=== PATIENT | female | born 1990 | race Native Hawaiian/Other Pacific Islander ===

== ENCOUNTER 2020-09-20 18:25 | Outpatient (CLI) | payer SELFPAY ==
[2020-09-20 19:14] VITALS: BP 99/55
[2020-09-20] MEDS ORDERED: LACTATED RINGERS 500 ML IV ONE (20:35)
[2020-09-20] MEDS ORDERED: TERBUTALINE 1 MG/1 ML INJ SUB-Q PRN (20:43)
[2020-09-20 20:46] LABS: Bacteria,Urine 1+ /HPF (Negative); Bilirubin,Urine NEG (Negative); Blood,Urine NEG (Negative); Color,Urine Yellow (Yellow); Protein,Urine <15 mg/dL mg/dL (Negative); Urobilinogen,Urine < 2.0 mg/dL (<2.0)
[2020-09-20] MEDS ORDERED: LACTATED RINGERS 1,000 ML IV ONE (22:00)
== END 2020-09-20 21:41 | disposition home or self-care (01) ==
LOC: TRG 18:25 → APU 18:26 → TRG 21:41
PROVIDERS: ATTEND Obstetrics & Gynecology
DX: O42.913 Preterm premature rupture of membranes, unspecified as to length of time between rupture and onset of labor, third trimester (principal); Z3A.33 33 weeks gestation of pregnancy
CPT/HCPCS: 59025; 81001; 96360; 96372; J3105; J7120; 96361

== ENCOUNTER 2021-03-26 11:59 | Inpatient (IN) | payer OTHER ==
--- NOTE | 2021-03-26 12:24 | Event Note ---
ED Screening Note Date of service: 03/26/21 Time: 12:23 ED Screening Note: Patient presents with complaints of right lower quadrant pain radiating to her lower back with associated nausea and vomiting which started last night. This initial assessment/diagnostic orders/clinical plan/treatment(s) is/are subject to change based on patients health status, clinical progression and re- assessment by fellow clinical providers in the ED. Further treatment and workup at subsequent clinical providers discretion. Patient/guardian urged not to elope from the ED as their condition may be serious if not clinically assessed and managed. Initial orders include: Abdominal pain order set
[2021-03-26 12:56] LABS: Basophils % (Auto) 0.3 % (0.0-1.8); Eosinophils % (Auto) 0.4 % (0.0-4.3); Hematocrit 36.3 % (30.3-42.9); Hemoglobin 12.2 gm/dl (10.1-14.3); Lymphocytes # (Auto) 0.5 K/mm3 (1.2-5.4); Lymphocytes % (Auto) 4.4 % (13.4-35.0); Mean Corpuscular HGB Conc 34 % (30-34); Mean Corpuscular Volume 82 fl (79-97); Monocytes # (Auto) 0.9 K/mm3 (0.0-0.8); Monocytes % (Auto) 7.3 % (0.0-7.3); Platelet Count 255 K/mm3 (140-440); Red Blood Count 4.42 M/mm3 (3.65-5.03); Red Cell Distribution Width 16.1 % (13.2-15.2)
[2021-03-26 13:21] LABS: Alanine Aminotransferase 12 units/L (7-56); Albumin 4.3 g/dL (3.9-5)
[2021-03-26 13:22] LABS: Bilirubin,Direct < 0.2 mg/dL (0-0.2)
[2021-03-26] MEDS ORDERED: SODIUM CHLORIDE 0.9% 1000 ML 1,000 ML IV ONE ×3 (14:38→20:02)
[2021-03-26] MEDS ORDERED: ONDANSETRON 4 MG/2 ML INJ IV ONE (14:38)
[2021-03-26] MEDS ORDERED: MORPHINE 2 MG/1 ML INJ IV ONE (14:39)
[2021-03-26 15:03] LABS: Blood Urea Nitrogen 9 mg/dL (7-17); Calcium 9.2 mg/dL (8.4-10.2); Hemolysis Index 2
[2021-03-26 15:19] LABS: BUN/Creatinine Ratio 18
[2021-03-26] MEDS ORDERED: MORPHINE 4 MG/1 ML INJ IV ONE ×2 (16:25→18:01)
[2021-03-26] MEDS ORDERED: ONDANSETRON 4 MG/2 ML INJ IM ONE (16:25)
--- NOTE | 2021-03-26 16:27 | Emergency Department Report ---
ED General Adult HPI - General Chief complaint: Abdominal Pain Stated complaint: ABD PAINS/GEN WEAKNESS Time Seen by Provider: 03/26/21 14:47 Source: patient Mode of arrival: Wheelchair Limitations: No Limitations - History of Present Illness Initial comments: The patient presents to the emergency department with a chief complaint of lower abdominal pain and vomiting that started last night. Patient complains that she has burning with urination as well. Patient complains also of nausea, vomiting, diarrhea. The patient states that pain is located in the right lower quadrant of abdomen. At times we use a ditcher operator to obtain history. -: Sudden Location: abdomen Severity scale (0 -10): 3 Quality: stabbing Consistency: constant Improves with: none Worsens with: none Associated Symptoms: denies other symptoms Treatments Prior to Arrival: none - Related Data Allergies Allergy/AdvReac Type Severity Reaction Status Date / Time No Known Allergies Allergy Unverified 09/20/20 19:35 ED Review of Systems ROS: Stated complaint: ABD PAINS/GEN WEAKNESS Other details as noted in HPI Comment: All other systems reviewed and negative Constitutional: denies: chills, fever Eyes: denies: eye pain, eye discharge, vision change ENT: denies: ear pain, throat pain Respiratory: denies: cough, shortness of breath, wheezing Cardiovascular: denies: chest pain, palpitations Endocrine: no symptoms reported Gastrointestinal: abdominal pain. denies: nausea, diarrhea Genitourinary: denies: urgency, dysuria, discharge Musculoskeletal: denies: back pain, joint swelling, arthralgia Skin: denies: rash, lesions Neurological: denies: headache, weakness, paresthesias Psychiatric: denies: anxiety, depression Hematological/Lymphatic: denies: easy bleeding, easy bruising ED Past Medical Hx - Past Medical History Previous Medical History?: No Hx Hypertension: No Hx Diabetes: No Hx Deep Vein Thrombosis: No Hx Renal Disease: No Hx Sickle Cell Disease: No Hx Seizures: No Hx Asthma: No - Social History Smoking Status: Never Smoker Substance Use Type: None ED Physical Exam - General Limitations: No Limitations General appearance: alert, in no apparent distress - Head Head exam: Present: atraumatic, normocephalic - Eye Eye exam: Present: normal appearance, PERRL, EOMI - ENT ENT exam: Present: mucous membranes moist - Neck Neck exam: Present: normal inspection - Respiratory Respiratory exam: Present: normal lung sounds bilaterally. Absent: respiratory distress - Cardiovascular Cardiovascular Exam: Present: normal rhythm, tachycardia. Absent: systolic murmur, diastolic murmur, rubs, gallop - GI/Abdominal GI/Abdominal exam: Present: soft, tenderness (Tenderness to palpation right lower quadrant), normal bowel sounds. Absent: distended - External exam: Present: normal external exam, other (Exam chaperoned by nurse Katherine ODONNELL at 6 PM) Speculum exam: Present: vaginal discharge Bi-manual exam: Present: adnexal tenderness (right ) - Extremities Exam Extremities exam: Present: normal inspection - Back Exam Back exam: Present: normal inspection - Neurological Exam Neurological exam: Present: alert, oriented X3, CN II-XII intact. Absent: motor sensory deficit - Psychiatric Psychiatric exam: Present: normal affect, normal mood - Skin Skin exam: Present: warm, dry, intact, normal color. Absent: rash ED Course Vital Signs 03/26/21 12:16 Temperature 98.6 F Pulse Rate 109 H Respiratory 20 Rate Blood Pressure 91/46 O2 Sat by Pulse 100 Oximetry ED Medical Decision Making - Lab Data Result diagrams: 03/26/21 12:29 03/26/21 12:29 Lab Results 03/26/21 03/26/21 03/26/21 Range/Units 12:29 12:29 12:29 WBC 12.5 H (4.5-11.0) K/mm3 RBC 4.42 (3.65-5.03) M/mm3 Hgb 12.2 (10.1-14.3) gm/dl Hct 36.3 (30.3-42.9) % MCV 82 (79-97) fl MCH 28 (28-32) pg MCHC 34 (30-34) % RDW 16.1 H (13.2-15.2) % Plt Count 255 (140-440) K/mm3 Lymph % (Auto) 4.4 L (13.4-35.0) % [place] % (Auto) 7.3 (0.0-7.3) % Eos % (Auto) 0.4 (0.0-4.3) % Baso % (Auto) 0.3 (0.0-1.8) % Lymph # (Auto) 0.5 L (1.2-5.4) K/mm3 [place] # (Auto) 0.9 H (0.0-0.8) K/mm3 Eos # (Auto) 0.0 (0.0-0.4) K/mm3 Baso # (Auto) 0.0 (0.0-0.1) K/mm3 Seg Neutrophils % 87.6 H (40.0-70.0) % Seg Neutrophils # 11.0 H (1.8-7.7) K/mm3 Sodium (137-145) mmol/L Potassium (3.6-5.0) mmol/L Chloride (98-107) mmol/L Carbon Dioxide (22-30) mmol/L Anion Gap mmol/L BUN (7-17) mg/dL Creatinine (0.6-1.2) mg/dL Estimated GFR ml/min BUN/Creatinine Ratio % Glucose (65-100) mg/dL Lactic Acid (0.7-2.0) mmol/L Calcium (8.4-10.2) mg/dL Total Bilirubin 0.30 (0.1-1.2) mg/dL Direct Bilirubin < 0.2 (0-0.2) mg/dL Indirect Bilirubin 0.1 mg/dL AST 11 (5-40) units/L ALT 12 (7-56) units/L Alkaline Phosphatase 86 (35-129) units/L Total Protein 8.0 (6.3-8.2) g/dL Albumin 4.3 (3.9-5) g/dL Albumin/Globulin Ratio 1.2 % Lipase 25 (13-60) units/L HCG, Qual Negative (Negative) 03/26/21 03/26/21 Range/Units 12:29 12:29 WBC (4.5-11.0) K/mm3 RBC (3.65-5.03) M/mm3 Hgb (10.1-14.3) gm/dl Hct (30.3-42.9) % MCV (79-97) fl MCH (28-32) pg MCHC (30-34) % RDW (13.2-15.2) % Plt Count (140-440) K/mm3 Lymph % (Auto) (13.4-35.0) % [place] % (Auto) (0.0-7.3) % Eos % (Auto) (0.0-4.3) % Baso % (Auto) (0.0-1.8) % Lymph # (Auto) (1.2-5.4) K/mm3 [place] # (Auto) (0.0-0.8) K/mm3 Eos # (Auto) (0.0-0.4) K/mm3 Baso # (Auto) (0.0-0.1) K/mm3 Seg Neutrophils % (40.0-70.0) % Seg Neutrophils # (1.8-7.7) K/mm3 Sodium 137 (137-145) mmol/L Potassium 3.6 (3.6-5.0) mmol/L Chloride 102.1 (98-107) mmol/L Carbon Dioxide 23 (22-30) mmol/L Anion Gap 16 mmol/L BUN 9 (7-17) mg/dL Creatinine 0.5 L (0.6-1.2) mg/dL Estimated GFR > 60 ml/min BUN/Creatinine Ratio 18 % Glucose 135 H (65-100) mg/dL Lactic Acid 1.30 (0.7-2.0) mmol/L Calcium 9.2 (8.4-10.2) mg/dL Total Bilirubin (0.1-1.2) mg/dL Direct Bilirubin (0-0.2) mg/dL Indirect Bilirubin mg/dL AST (5-40) units/L ALT (7-56) units/L Alkaline Phosphatase (35-129) units/L Total Protein (6.3-8.2) g/dL Albumin (3.9-5) g/dL Albumin/Globulin Ratio % Lipase (13-60) units/L HCG, Qual (Negative) - Radiology Data Radiology results: report reviewed - Medical Decision Making Discussed the patient with the on-call check airman Dr. Swan suggested that we get general surgery involved Spoke with Dr. Ordoñez and was asked to start the patient on IV antibiotics and will see the patient in consultation Awaiting results of the GC and wet prep studies IV antibiotics and IV fluids given Critical Care Time: Yes Critical care time in (mins) excluding proc time.: 35 Critical care attestation.: If time is entered above; I have spent that time in minutes in the direct care of this critically ill patient, excluding procedure time. ED Disposition Clinical Impression: Colitis, Sepsis Disposition: OP ADMIT IP TO THIS HOSP Is pt being admited?: Yes Does the pt Need Aspirin: No Condition: Fair Instructions: Abdominal Pain (ED) Referrals: PRIMARY CARE, [Primary Care Provider] - 3-5 Days
--- NOTE | 2021-03-26 16:28 | Cat Scan Report ---
CT abdomen pelvis w con INDICATION: MAIN. TECHNIQUE: All CT scans at this location are performed using CT dose reduction for ALARA by means of automated e xposure control. COMPARISON: None available. FINDINGS: Lung bases are clear. Liver, gallbladder, spleen, pancreas, kidneys and adrenals are negative. Abdomi nal aorta is normal in size. No adenopathy. Pelvis There is fairly diffuse inflammatory change in the right lower abdomen and right pelvis, involving th e right adnexa, right colon, including the hepatic flexure, appendix, sigmoid colon located to the ri ght of midline, and distal small bowel. There is only trace free fluid in the pelvis. Urinary bladde r is moderately distended but otherwise negative. No free air. No acute skeletal lesions. IMPRESSION: 1. Diffuse inflammatory change in the right pelvis and right lower abdomen, as described above. The e xact etiology of this inflammatory change is difficult to determine. Pelvic inflammatory disease, brad endicitis and enteritis/colitis are all diagnostic possibilities. Signer Name: Taras Jim MD Signed: 03/26/2021 4:24 PM Workstation Name: [id number]
[2021-03-26] MEDS ORDERED: PIPERACIL/TAZOBACTA 4.5/NS 100 4.5 GM/100 ML VIAL IV ONE ×2 (18:03→18:14)
[2021-03-26] MEDS ORDERED: ONDANSETRON 4 MG/2 ML INJ ONE (19:49)
--- NOTE | 2021-03-27 00:27 | History and Physical Report ---
History of Present Illness Date of examination: 03/26/21 Date of admission: 03/26/21 18:30 Chief complaint: Right lower quadrant pain for 2 days History of present illness: 30-year-old Iranian-speaking female with no significant past medical history presents with right lower quadrant pain since yesterday. Patient also has dysuria. No nausea vomiting or diarrhea. Pain is about 8 on a scale of 1-10. No exacerbating or relieving factors. No fever or chills. No exposure to coronavirus. - Past Medical History Previous Medical History?: No Past surgical history No - Social History Smoking Status: Never Smoker Substance Use Type: None Review of Systems ROS: Stated complaint: ABD PAINS/GEN WEAKNESS Other details as noted in HPI Comment: All other systems reviewed and negative Constitutional: denies: chills, fever Eyes: denies: eye pain, eye discharge, vision change ENT: denies: ear pain, throat pain Respiratory: denies: cough, shortness of breath, wheezing Cardiovascular: denies: chest pain, palpitations Endocrine: no symptoms reported Gastrointestinal: abdominal pain. denies: nausea, diarrhea Genitourinary: denies: urgency, dysuria, discharge Musculoskeletal: denies: back pain, joint swelling, arthralgia Skin: denies: rash, lesions Neurological: denies: headache, weakness, paresthesias Psychiatric: denies: anxiety, depression Hematological/Lymphatic: denies: easy bleeding, easy bruising \ Medications and Allergies Allergies Allergy/AdvReac Type Severity Reaction Status Date / Time No Known Allergies Allergy Unverified 09/20/20 19:35 Exam - Constitutional Vitals: Temp Pulse Resp BP Pulse Ox 99.3 F 101 H 18 96/61 100 03/26/21 22:01 03/26/21 22:01 03/26/21 22:01 03/26/21 22:01 03/26/21 22:01 General appearance: Present: mild distress, well-nourished - EENT Eyes: Present: PERRL ENT: hearing intact, clear oral mucosa - Neck Neck: Present: supple, normal ROM - Respiratory Respiratory effort: normal Respiratory: bilateral: CTA - Cardiovascular Heart rate: 78 Rhythm: regular Heart Sounds: Present: S1 & S2. Absent: rub, click - Extremities Extremities: no ischemia, pulses intact, pulses symmetrical, No edema Peripheral Pulses: within normal limits - Abdominal General gastrointestinal: Present: soft, non-tender, non-distended, normal bowel sounds Localized gastrointestinal: tender: RLQ, guarding: RLQ Female genitourinary: Present: normal - Rectal Rectal Exam: deferred - Integumentary Integumentary: Present: clear, warm, dry - Musculoskeletal Musculoskeletal: gait normal, strength equal bilaterally - Psychiatric Psychiatric: appropriate mood/affect, intact judgment & insight - Neurologic Neurologic: CNII-XII intact, moves all extremities - Allied Health Allied health notes reviewed: nursing, case management Results - Labs CBC & Chem 7: 03/26/21 12:29 03/26/21 12:29 Labs: Laboratory Last Values WBC 12.5 K/mm3 (4.5-11.0) H 03/26/21 12: RBC 4.42 M/mm3 (3.65-5.03) 03/26/21 12: Hgb 12.2 gm/dl (10.1-14.3) 03/26/21 12: Hct 36.3 % (30.3-42.9) 03/26/21 12: MCV 82 fl (79-97) 03/26/21 12: MCH 28 pg (28-32) 03/26/21 12: MCHC 34 % (30-34) 03/26/21 12: RDW 16.1 % (13.2-15.2) H 03/26/21 12:29 Plt Count 255 K/mm3 (140-440) 03/26/21 12: Lymph % (Auto) 4.4 % (13.4-35.0) L 03/26/21 12: [place] % (Auto) 7.3 % (0.0-7.3) 03/26/21 12: Eos % (Auto) 0.4 % (0.0-4.3) 03/26/21 12: Baso % (Auto) 0.3 % (0.0-1.8) 03/26/21 12: Lymph # (Auto) 0.5 K/mm3 (1.2-5.4) L 03/26/21 12: [place] # (Auto) 0.9 K/mm3 (0.0-0.8) H 03/26/21 12: Eos # (Auto) 0.0 K/mm3 (0.0-0.4) 03/26/21 12:29 Baso # (Auto) 0.0 K/mm3 (0.0-0.1) 03/26/21 12:29 Seg Neutrophils % 87.6 % (40.0-70.0) H 03/26/21 12: Seg Neutrophils # 11.0 K/mm3 (1.8-7.7) H 03/26/21 12:29 Sodium 137 mmol/L (137-145) 03/26/21 12:29 Potassium 3.6 mmol/L (3.6-5.0) 03/26/21 12:29 Chloride 102.1 mmol/L (98-107) 03/26/21 12: Carbon Dioxide 23 mmol/L (22-30) 03/26/21 12:29 Anion Gap 16 mmol/L 03/26/21 12:29 BUN 9 mg/dL (7-17) 03/26/21 12:29 Creatinine 0.5 mg/dL (0.6-1.2) L 03/26/21 12:29 Estimated GFR > 60 ml/min 03/26/21 12:29 BUN/Creatinine Ratio 18 % 03/26/21 12:29 Glucose 135 mg/dL (65-100) H 03/26/21 12:29 Lactic Acid 1.40 mmol/L (0.7-2.0) 03/26/21 18:11 Calcium 9.2 mg/dL (8.4-10.2) 03/26/21 12: Total Bilirubin 0.30 mg/dL (0.1-1.2) 03/26/21 12:29 Direct Bilirubin < 0.2 mg/dL (0-0.2) 03/26/21 12: Indirect Bilirubin 0.1 mg/dL 03/26/21 12:29 AST 11 units/L (5-40) 03/26/21 12: ALT 12 units/L (7-56) 03/26/21 12: Alkaline Phosphatase 86 units/L (35-129) 03/26/21 12:29 Total Protein 8.0 g/dL (6.3-8.2) 03/26/21 12:29 Albumin 4.3 g/dL (3.9-5) 03/26/21 12:29 Albumin/Globulin Ratio 1.2 % 03/26/21 12:29 Lipase 25 units/L (13-60) 03/26/21 12:29 HCG, Qual Negative (Negative) 03/26/21 12:29 Microbiology: Microbiology 03/26/21 18:11 Peripheral/Venous Blood Culture - Preliminary Culture in Progress 03/26/21 18:17 Peripheral/Venous Blood Culture - Preliminary Culture in Progress 03/26/21 Unknown Cervix Wet Prep - Final 03/26/21 12:29 Peripheral/Venous Blood Culture - Preliminary Culture in Progress 03/26/21 12:29 Peripheral/Venous Blood Culture - Preliminary Culture in Progress - Imaging and Cardiology CT scan - abdomen: report reviewed Imaging and Cardiology: CT abdomen and pelvis IMPRESSION: 1. Diffuse inflammatory change in the right pelvis and right lower abdomen, as described above. The exact etiology of this inflammatory change is difficult to determine. Pelvic inflammatory disease, appendicitis and en teritis/colitis are all diagnostic possibilities. Signer Name: Taras Jim MD Signed: 03/26/2021 4:24 PM Workstation Name: [id number] [place]/IV: Voiding Method Bedside Commode Assessment and Plan Advance Directives: Yes (Full code) VTE prophylaxis?: Chemical Plan of care discussed with patient/family: Yes - Patient Problems (1) SIRS (systemic inflammatory response syndrome) Current Visit: Yes Status: Acute Plan to address problem: Patient has high white count and hypotension and low-grade fever of 100.3 Clinical picture fits with Sirs (2) Pelvic inflammatory disease Current Visit: Yes Status: Acute Plan to address problem: Confined only to the right lower quadrant pelvis Differential diagnosis of appendicitis versus PID PA patient initiated on IV Zosyn Surgery and TOLL TEST WORKER consult requested Will defer surgery to Dr. Swan and Dr. Tiago Parker IV antibiotics for now IV fluids for now (3) Hypotension Current Visit: Yes Status: Acute Qualifiers: Hypotension type: unspecified hypotension type Qualified Code(s): I95.9 - Hypotension, unspecified Plan to address problem: Possible sepsis IV normal saline bolus (4) DVT prophylaxis Current Visit: Yes Status: Acute Plan to address problem: On heparin and GI prophylaxis
[2021-03-27] MEDS ORDERED: ACETAMINOPHEN 325 MG TAB PO PRN (00:31)
[2021-03-27] MEDS ORDERED: ONDANSETRON 4 MG/2 ML INJ IV PRN (00:31)
[2021-03-27] MEDS ORDERED: PIPERACILLIN/TAZOBACTAM 3.375 3.375 GM/50 ML BAG IV SCH (01:00)
[2021-03-27] MEDS: MORPHINE 2 MG/1 ML INJ IV PRN ×4 (02:30→21:16)
[2021-03-27] MEDS: SODIUM CHLORIDE 0.9% 1000 ML 1,000 ML IV SCH (02:30)
[2021-03-27] MEDS: PIPERACIL/TAZOBACTA 4.5/NS 100 4.5 GM/100 ML VIAL IV SCH ×3 (04:05→21:16)
[2021-03-27 06:23] LABS: Bilirubin,Urine NEG (Negative); Blood,Urine NEG (Negative); Color,Urine Yellow (Yellow); Protein,Urine <15 mg/dL mg/dL (Negative); Urobilinogen,Urine < 2.0 mg/dL (<2.0)
[2021-03-27 08:51] LABS: Basophils % (Auto) 0.3 % (0.0-1.8); Eosinophils % (Auto) 0.1 % (0.0-4.3); Hematocrit 29.6 % (30.3-42.9); Hemoglobin 10.1 gm/dl (10.1-14.3); Lymphocytes # (Auto) 0.9 K/mm3 (1.2-5.4); Lymphocytes % (Auto) 10.6 % (13.4-35.0); Mean Corpuscular HGB Conc 34 % (30-34); Mean Corpuscular Volume 83 fl (79-97); Monocytes # (Auto) 0.7 K/mm3 (0.0-0.8); Platelet Count 195 K/mm3 (140-440); Red Blood Count 3.57 M/mm3 (3.65-5.03); Red Cell Distribution Width 16.7 % (13.2-15.2)
[2021-03-27] MEDS ORDERED: SODIUM CHLORIDE 0.9% 1000 ML 1,000 ML IV ONE (08:54)
[2021-03-27 09:08] LABS: Alanine Aminotransferase 12 units/L (7-56); Albumin 3.4 g/dL (3.9-5); Blood Urea Nitrogen 6 mg/dL (7-17); Calcium 7.9 mg/dL (8.4-10.2); Hemolysis Index 8
--- NOTE | 2021-03-27 09:08 | Progress Note ---
Assessment and Plan Assessment and plan: 30-year-old Belarusian-speaking female with no significant past medical history presents with right lower quadrant pain since yesterday. She has a 5-month-old in addition to 2 other children patient also has dysuria. No nausea vomiting or diarrhea. Pain is about 8 on a scale of 1-10. No exacerbating or relieving factors. No fever or chills. No exposure to coronavirus. Initial imaging CT scan showed concern for diffuse inflammatory change in the right pelvis and right lower abdomen with multiple differentials documented such as pelvic inflammatory disease, appendicitis, enteritis/colitis Diffuse right lower quadrant abdominal pain possible underlining appendicitis versus colitis versus PID Systemic inflammatory response syndrome without organ dysfunction. No evidence of sepsis Hypotension Leukocytosis now resolved Plan Continue supportive care bowel rest Surgery and NUTRITION THERAPIST consultation pending We will give a bolus of fluid and monitor blood pressure Pain control Continue empiric antibiotic at this time. Monitor electrolytes and LFTs DVT and GI prophylaxis Patient may benefit from a GI evaluation outpatient after inflammatory condition has resolved. Plan of care discussed with the patient in detail and nursing staff at bedside History Interval history: Patient seen and examined today resting comfortably although still with pain in the right lower quadrant. Rates it a 3/10 in intensity at this time. Nursing staff overnight reports that patient required multiple rounds of pain medication nevertheless has been able to ambulate. No further nausea vomiting noted. Hospitalist Physical - Physical exam Narrative exam: VITAL SIGNS: Reviewed. GENERAL: The patient appears normally developed, cachectic, mild discomfort no respiratory distress vital signs as documented. HEAD: No signs of head trauma. EYES: Pupils are equal. Extraocular motions intact. EARS: Hearing grossly intact. MOUTH: Oropharynx is normal. NECK: No adenopathy, no JVD. CHEST: Chest with clear breath sounds bilaterally. No wheezes, rales, or rhonchi. CARDIAC: Regular rate and rhythm. S1 and S2, without murmurs, gallops, or rubs. VASCULAR: No Edema. Peripheral pulses normal and equal in all extremities. ABDOMEN: Soft, right lower quadrant tenderness and non distended. No rebound or guarding, and no masses palpated. Bowel Sounds normal. MUSCULOSKELETAL: Good range of motion of all major joints. Extremities without clubbing, cyanosis or edema. NEUROLOGIC EXAM: Alert and oriented x 3 No focal sensory or strength deficits. Speech normal. Follows commands. PSYCHIATRIC: Mood normal. SKIN: detail exam as documented in skin assessment - Constitutional Vitals: Temp Pulse Resp BP Pulse Ox 99.3 F 101 H 18 86/48 95 03/27/21 07:37 03/27/21 07:37 03/27/21 07:37 03/27/21 07:37 03/27/21 07:37 General appearance: Present: mild distress, well-nourished Results - Labs CBC & Chem 7: 03/27/21 08:00 03/26/21 12:29 Labs: Laboratory Last Values WBC 8.4 K/mm3 (4.5-11.0) 03/27/21 08:00 RBC 3.57 M/mm3 (3.65-5.03) L 03/27/21 08:00 Hgb 10.1 gm/dl (10.1-14.3) 03/27/21 08:00 Hct 29.6 % (30.3-42.9) L D 03/27/21 08:00 MCV 83 fl (79-97) 03/27/21 08:00 MCH 28 pg (28-32) 03/27/21 08:00 MCHC 34 % (30-34) 03/27/21 08:00 RDW 16.7 % (13.2-15.2) H 03/27/21 08:00 Plt Count 195 K/mm3 (140-440) 03/27/21 08:00 Lymph % (Auto) 10.6 % (13.4-35.0) L 03/27/21 08:00 [place] % (Auto) 8.0 % (0.0-7.3) H 03/27/21 08:00 Eos % (Auto) 0.1 % (0.0-4.3) 03/27/21 08:00 Baso % (Auto) 0.3 % (0.0-1.8) 03/27/21 08:00 Lymph # (Auto) 0.9 K/mm3 (1.2-5.4) L 03/27/21 08:00 [place] # (Auto) 0.7 K/mm3 (0.0-0.8) 03/27/21 08:00 Eos # (Auto) 0.0 K/mm3 (0.0-0.4) 03/27/21 08:00 Baso # (Auto) 0.0 K/mm3 (0.0-0.1) 03/27/21 08:00 Seg Neutrophils % 81.0 % (40.0-70.0) H 03/27/21 08:00 Seg Neutrophils # 6.8 K/mm3 (1.8-7.7) 03/27/21 08:00 Sodium 137 mmol/L (137-145) 03/26/21 12:29 Potassium 3.6 mmol/L (3.6-5.0) 03/26/21 12:29 Chloride 102.1 mmol/L (98-107) 03/26/21 12:29 Carbon Dioxide 23 mmol/L (22-30) 03/26/21 12:29 Anion Gap 16 mmol/L 03/26/21 12:29 BUN 9 mg/dL (7-17) 03/26/21 12:29 Creatinine 0.5 mg/dL (0.6-1.2) L 03/26/21 12:29 Estimated GFR > 60 ml/min 03/26/21 12:29 BUN/Creatinine Ratio 18 % 03/26/21 12:29 Glucose 135 mg/dL (65-100) H 03/26/21 12:29 Hemoglobin A1c 5.0 % (4-6) 03/27/21 08:00 Lactic Acid 1.40 mmol/L (0.7-2.0) 03/26/21 18:11 Calcium 9.2 mg/dL (8.4-10.2) 03/26/21 12:29 Total Bilirubin 0.30 mg/dL (0.1-1.2) 03/26/21 12:29 Direct Bilirubin < 0.2 mg/dL (0-0.2) 03/26/21 12:29 Indirect Bilirubin 0.1 mg/dL 03/26/21 12:29 AST 11 units/L (5-40) 03/26/21 12:29 ALT 12 units/L (7-56) 03/26/21 12:29 Alkaline Phosphatase 86 units/L (35-129) 03/26/21 12:29 Total Protein 8.0 g/dL (6.3-8.2) 03/26/21 12:29 Albumin 4.3 g/dL (3.9-5) 03/26/21 12:29 Albumin/Globulin Ratio 1.2 % 03/26/21 12:29 Lipase 25 units/L (13-60) 03/26/21 12:29 HCG, Qual Negative (Negative) 03/26/21 12:29 Urine Color Yellow (Yellow) 03/27/21 06:00 Urine Turbidity Clear (Clear) 03/27/21 06:00 Urine pH 6.0 (5.0-7.0) 03/27/21 06:00 Ur Specific [place] 1.019 (1.003-1.030) 03/27/21 06:00 Urine Protein <15 mg/dl mg/dL (Negative) 03/27/21 06:00 Urine Glucose (UA) Neg mg/dL (Negative) 03/27/21 06:00 Urine Ketones Tr mg/dL (Negative) 03/27/21 06:00 Urine Blood Neg (Negative) 03/27/21 06:00 Urine Nitrite Neg (Negative) 03/27/21 06:00 Urine Bilirubin Neg (Negative) 03/27/21 06:00 Urine Urobilinogen < 2.0 mg/dL (<2.0) 03/27/21 06:00 Ur Leukocyte Esterase Neg (Negative) 03/27/21 06:00 Urine WBC (Auto) 1.0 /HPF (0.0-6.0) 03/27/21 06:00 Urine RBC (Auto) 1.0 /HPF (0.0-6.0) 03/27/21 06:00 U Epithel Cells (Auto) 1.0 /HPF (0-13.0) 03/27/21 06:00 Microbiology: Microbiology 03/26/21 18:11 Peripheral/Venous Blood Culture - Preliminary Culture in Progress 03/26/21 18:17 Peripheral/Venous Blood Culture - Preliminary Culture in Progress 03/26/21 Unknown Cervix Wet Prep - Final 03/26/21 12:29 Peripheral/Venous Blood Culture - Preliminary Culture in Progress 03/26/21 12:29 Peripheral/Venous Blood Culture - Preliminary Culture in Progress [place]/IV: Voiding Method Bedside Commode Active Medications - Current Medications Current Medications: Generic Name Dose Route Start Last Admin Trade Name Freq PRN Reason Stop Dose Admin Acetaminophen 650 mg 03/27/21 00:31 03/27/21 05:40 Acetaminophen 325 Mg Tab PO 650 mg Q4H PRN Administration Pain MILD(1-3)/Fever >100.5/NORIEGA Famotidine 20 mg 03/27/21 10:00 Famotidine 20 Mg/2 Ml Inj IV BID WGANER Sodium Chloride 1,000 mls @ 100 mls/hr 03/27/21 00:45 03/27/21 02:30 Nacl 0.9% 1000 Ml IV 100 mls/hr DIRECT WAGNER Administration Piperacillin Sod/Tazobactam Sod 4.5 gm in 100 mls @ 200 mls/hr 03/27/21 04:00 03/27/21 04:05 Zosyn/Ns 4.5gm/100ml IV 200 mls/hr Q8H WAGNER Administration Protocol Sodium Chloride 1,000 mls @ 999 mls/hr 03/27/21 08:54 Nacl 0.9% 1000 Ml IV 03/27/21 09:54 BOLUS ONE Morphine Sulfate 2 mg 03/27/21 00:31 03/27/21 07:22 Morphine 2 Mg/1 Ml Inj IV 2 mg Q4H PRN Administration Pain, Moderate (4-6) Ondansetron HCl 4 mg 03/27/21 00:31 Ondansetron 4 Mg/2 Ml Inj IV Q8H PRN Nausea And Vomiting Oxycodone/Acetaminophen 1 tab 03/27/21 00:31 Oxycodone /Acetaminophen 5-325mg Tab PO Q6H PRN Pain, Moderate (4-6) Sodium Chloride 10 ml 03/27/21 10:00 Sodium Chloride 0.9% 10 Ml Flush Syringe IV BID WAGNER Sodium Chloride 10 ml 03/27/21 00:31 Sodium Chloride 0.9% 10 Ml Flush Syringe IV PRN PRN LINE FLUSH
[2021-03-27 10:00] LABS: BUN/Creatinine Ratio 10
[2021-03-27] MEDS: FAMOTIDINE 20 MG/2 ML INJ IV SCH ×2 (10:34→21:16)
--- NOTE | 2021-03-27 16:18 | Consultation ---
History of Present Illness Consult date: 03/27/21 Reason for consult: abdominal pain (30 yo female admitted with RLQ pain. Her pain is improving since being admitted.) Medications and Allergies Allergies Allergy/AdvReac Type Severity Reaction Status Date / Time No Known Allergies Allergy Unverified 09/20/20 19:35 Active Meds: Active Medications Acetaminophen (Acetaminophen 325 Mg Tab) 650 mg PO Q4H PRN PRN Reason: Pain MILD(1-3)/Fever >100.5/NORIEGA Last Admin: 03/27/21 05:40 Dose: 650 mg Documented by: Famotidine (Famotidine 20 Mg/2 Ml Inj) 20 mg IV BID WAGNER Sodium Chloride (Nacl 0.9% 1000 Ml) 1,000 mls @ 100 mls/hr IV DIRECT WAGNER Last Admin: 03/27/21 02:30 Dose: 100 mls/hr Documented by: Piperacillin Sod/Tazobactam Sod (Zosyn/Ns 4.5gm/100ml) 4.5 gm in 100 mls @ 200 mls/hr IV Q8H WAGNER; Protocol Last Admin: 03/27/21 04:05 Dose: 200 mls/hr Documented by: Morphine Sulfate (Morphine 2 Mg/1 Ml Inj) 2 mg IV Q4H PRN PRN Reason: Pain, Moderate (4-6) Last Admin: 03/27/21 07:22 Dose: 2 mg Documented by: Ondansetron HCl (Ondansetron 4 Mg/2 Ml Inj) 4 mg IV Q8H PRN PRN Reason: Nausea And Vomiting Oxycodone/Acetaminophen (Oxycodone /Acetaminophen 5-325mg Tab) 1 tab PO Q6H PRN PRN Reason: Pain, Moderate (4-6) Sodium Chloride (Sodium Chloride 0.9% 10 Ml Flush Syringe) 10 ml IV BID WAGNER Sodium Chloride (Sodium Chloride 0.9% 10 Ml Flush Syringe) 10 ml IV PRN PRN PRN Reason: LINE FLUSH Review of Systems All systems: negative (none) Exam Vital Signs Temp Pulse Resp BP Pulse Ox 98.6 F 109 H 20 91/46 100 03/26/21 12:16 03/26/21 12:16 03/26/21 12:16 03/26/21 12:16 03/26/21 12:16 - General physical appearance Positive: well developed, well nourished, no distress - Eyes Positive: PERRL, normal occular movement - ENT Positive: normal pinna, normal nares, normal mucosa, no hearing loss, no congestion - Neck Positive: no masses, no bruits, trachea midline, no venous distension - Respiratory Positive: normal expansion, normal respiratory effort, clear to auscultation - Cardiovascular Rhythm: regular Heart Sounds: Present: S1 & S2. Absent: rub, click - Extremities Extremities: no ischemia, pulses symmetrical, No edema - Breasts Breasts: normal, no mass, no skin changes - Abdomen Abdomen: Present: soft, bowel sounds normal, other (Minimally TTP in the RLQ without rebound or guarding.). Absent: distended Hernia: none - Genitourinary Male Genitourinary: normal Female Genitourinary: normal - Integumentary no rash, no growths, no abnormal pigmentation - Neurologic Neurologic: alert and oriented to time, place and person, motor strength and sensation are grossly intact - Musculoskeletal normal gait, normal posture - Psychiatric Psychiatric: appropriate mood/affect, intact judgment & insight Results - Labs 03/27/21 08:00 03/27/21 08:00 Abnormal lab results 03/27/21 03/27/21 Range/Units 08:00 08:00 RBC 3.57 L (3.65-5.03) M/mm3 Hct 29.6 L D (30.3-42.9) % RDW 16.7 H (13.2-15.2) % Lymph % (Auto) 10.6 L (13.4-35.0) % [place] % (Auto) 8.0 H (0.0-7.3) % Lymph # (Auto) 0.9 L (1.2-5.4) K/mm3 Seg Neutrophils % 81.0 H (40.0-70.0) % Potassium 3.3 L (3.6-5.0) mmol/L BUN 6 L (7-17) mg/dL Calcium 7.9 L (8.4-10.2) mg/dL Albumin 3.4 L (3.9-5) g/dL Diabetes panel 03/27/21 03/27/21 Range/Units 08:00 08:00 Sodium 137 (137-145) mmol/L Potassium 3.3 L (3.6-5.0) mmol/L Chloride 106.1 (98-107) mmol/L Carbon Dioxide 23 (22-30) mmol/L BUN 6 L (7-17) mg/dL Creatinine 0.6 (0.6-1.2) mg/dL Glucose 93 (65-100) mg/dL Hemoglobin A1c 5.0 (4-6) % Calcium 7.9 L (8.4-10.2) mg/dL AST 11 (5-40) units/L ALT 12 (7-56) units/L Alkaline Phosphatase 66 (35-129) units/L Total Protein 6.5 (6.3-8.2) g/dL Albumin 3.4 L (3.9-5) g/dL Calcium panel 03/27/21 Range/Units 08:00 Calcium 7.9 L (8.4-10.2) mg/dL Albumin 3.4 L (3.9-5) g/dL Pituitary panel 03/27/21 Range/Units 08:00 Sodium 137 (137-145) mmol/L Potassium 3.3 L (3.6-5.0) mmol/L Chloride 106.1 (98-107) mmol/L Carbon Dioxide 23 (22-30) mmol/L BUN 6 L (7-17) mg/dL Creatinine 0.6 (0.6-1.2) mg/dL Glucose 93 (65-100) mg/dL Calcium 7.9 L (8.4-10.2) mg/dL Adrenal panel 03/27/21 Range/Units 08:00 Sodium 137 (137-145) mmol/L Potassium 3.3 L (3.6-5.0) mmol/L Chloride 106.1 (98-107) mmol/L Carbon Dioxide 23 (22-30) mmol/L BUN 6 L (7-17) mg/dL Creatinine 0.6 (0.6-1.2) mg/dL Glucose 93 (65-100) mg/dL Calcium 7.9 L (8.4-10.2) mg/dL Total Bilirubin 0.70 (0.1-1.2) mg/dL AST 11 (5-40) units/L ALT 12 (7-56) units/L Alkaline Phosphatase 66 (35-129) units/L Total Protein 6.5 (6.3-8.2) g/dL Albumin 3.4 L (3.9-5) g/dL - Imaging CT scan - abdomen: report reviewed CT scan - pelvis: report reviewed Assessment and Plan - Patient Problems (1) Right lower quadrant pain Current Visit: Yes Status: Acute Plan to address problem: 1) Continue IV Zosyn 2) Continue CLD 3) CBC in the am
[2021-03-27] MEDS: oxyCODONE /ACETAMINOPHEN 5-325MG TAB PO PRN (17:30)
--- NOTE | 2021-03-27 22:50 | Consultation ---
History of Present Illness Consult date: 03/27/21 Reason for consult: pelvic infection History of present illness: The patient is a 30-year-old female who presented with pelvic infection she was admitted by general surgery and was treated with antibiotics and appears to be getting better with the antibiotics that the general surgeons have her own. Past History - Obstetrical History : 3 Medications and Allergies Allergies Allergy/AdvReac Type Severity Reaction Status Date / Time No Known Allergies Allergy Unverified 09/20/20 19:35 Active Meds: Active Medications Acetaminophen (Acetaminophen 325 Mg Tab) 650 mg PO Q4H PRN PRN Reason: Pain MILD(1-3)/Fever >100.5/NORIEGA Last Admin: 03/27/21 05:40 Dose: 650 mg Documented by: Famotidine (Famotidine 20 Mg/2 Ml Inj) 20 mg IV BID WAGNER Last Admin: 03/27/21 21:16 Dose: 20 mg Documented by: Sodium Chloride (Nacl 0.9% 1000 Ml) 1,000 mls @ 100 mls/hr IV DIRECT WAGNER Last Admin: 03/27/21 02:30 Dose: 100 mls/hr Documented by: Piperacillin Sod/Tazobactam Sod (Zosyn/Ns 4.5gm/100ml) 4.5 gm in 100 mls @ 200 mls/hr IV Q8H WAGNER; Protocol Last Admin: 03/27/21 21:16 Dose: 200 mls/hr Documented by: Morphine Sulfate (Morphine 2 Mg/1 Ml Inj) 2 mg IV Q4H PRN PRN Reason: Pain, Moderate (4-6) Last Admin: 03/27/21 21:16 Dose: 2 mg Documented by: Ondansetron HCl (Ondansetron 4 Mg/2 Ml Inj) 4 mg IV Q8H PRN PRN Reason: Nausea And Vomiting Oxycodone/Acetaminophen (Oxycodone /Acetaminophen 5-325mg Tab) 1 tab PO Q6H PRN PRN Reason: Pain, Moderate (4-6) Last Admin: 03/27/21 17:30 Dose: 1 tab Documented by: Sodium Chloride (Sodium Chloride 0.9% 10 Ml Flush Syringe) 10 ml IV BID WAGNER Last Admin: 03/27/21 21:26 Dose: 10 ml Documented by: Sodium Chloride (Sodium Chloride 0.9% 10 Ml Flush Syringe) 10 ml IV PRN PRN PRN Reason: LINE FLUSH - Vital Signs Vital signs: Vital Signs Temp Pulse Resp BP Pulse Ox 98.6 F 109 H 20 91/46 100 03/26/21 12:16 03/26/21 12:16 03/26/21 12:16 03/26/21 12:16 03/26/21 12:16 Temp Pulse Resp BP Pulse Ox 98.6 F 84 18 103/71 97 03/27/21 19:23 03/27/21 19:23 03/27/21 19:23 03/27/21 19:23 03/27/21 19:23 - Physical Exam Breasts: Positive: deferred Abdomen: Positive: normal appearance, soft (Abdominal examination within normal limits) Results Result Diagrams: 03/27/21 08:00 03/27/21 08:00 Abnormal lab results 03/27/21 03/27/21 Range/Units 08:00 08:00 RBC 3.57 L (3.65-5.03) M/mm3 Hct 29.6 L D (30.3-42.9) % RDW 16.7 H (13.2-15.2) % Lymph % (Auto) 10.6 L (13.4-35.0) % [place] % (Auto) 8.0 H (0.0-7.3) % Lymph # (Auto) 0.9 L (1.2-5.4) K/mm3 Seg Neutrophils % 81.0 H (40.0-70.0) % Potassium 3.3 L (3.6-5.0) mmol/L BUN 6 L (7-17) mg/dL Calcium 7.9 L (8.4-10.2) mg/dL Albumin 3.4 L (3.9-5) g/dL All other labs normal. Assessment and Plan The patient does appear to have pelvic abdominal infection that appears to be responding to antibiotics no indication for any operative procedures at this time and will continue to follow the patient with the general surgeons. - Patient Problems (1) Pelvic inflammatory disease Current Visit: Yes Status: Acute (2) Right lower quadrant pain Current Visit: Yes Status: Acute
[2021-03-28] MEDS: PIPERACIL/TAZOBACTA 4.5/NS 100 4.5 GM/100 ML VIAL IV SCH ×3 (04:09→22:36)
[2021-03-28] MEDS: MORPHINE 2 MG/1 ML INJ IV PRN (04:10)
[2021-03-28 08:23] LABS: Basophils # (Auto) 0.1 K/mm3 (0.0-0.1); Basophils % (Auto) 0.7 % (0.0-1.8); Eosinophils # (Auto) 0.9 K/mm3 (0.0-0.4); Eosinophils % (Auto) 11.2 % (0.0-4.3); Hematocrit 30.6 % (30.3-42.9); Hemoglobin 10.3 gm/dl (10.1-14.3); Lymphocytes # (Auto) 1.7 K/mm3 (1.2-5.4); Lymphocytes % (Auto) 21.8 % (13.4-35.0); Mean Corpuscular HGB Conc 34 % (30-34); Mean Corpuscular Volume 83 fl (79-97); Monocytes # (Auto) 0.6 K/mm3 (0.0-0.8); Monocytes % (Auto) 7.4 % (0.0-7.3); Platelet Count 203 K/mm3 (140-440); Red Blood Count 3.68 M/mm3 (3.65-5.03); Red Cell Distribution Width 16.2 % (13.2-15.2)
--- NOTE | 2021-03-28 08:42 | Progress Note ---
Assessment and Plan Assessment and plan: 30-year-old Yoruba-speaking female with no significant past medical history presents with right lower quadrant pain since yesterday. She has a 5-month-old in addition to 2 other children patient also has dysuria. No nausea vomiting or diarrhea. Pain is about 8 on a scale of 1-10. No exacerbating or relieving factors. No fever or chills. No exposure to coronavirus. Initial imaging CT scan showed concern for diffuse inflammatory change in the right pelvis and right lower abdomen with multiple differentials documented such as pelvic inflammatory disease, appendicitis, enteritis/colitis Diffuse right lower quadrant abdominal pain concerning for PID Systemic inflammatory response syndrome without organ dysfunction. No evidence of sepsis Hypotension Leukocytosis now resolved Hypokalemia Plan 03/28: Patient showing some clinical improvement. We will continue antibiotics therapy. Anticipate discharge in a.m. Continue supportive care bowel rest Surgery and PATIENT EXPERIENCE COORDINATOR input noted We will give a bolus of fluid and monitor blood pressure Pain control Continue empiric antibiotic at this time. Monitor electrolytes and LFTs DVT and GI prophylaxis Patient may benefit from a GI evaluation outpatient after inflammatory condition has resolved. Plan of care discussed with the patient in detail and nursing staff at bedside History Interval history: Patient seen and examined today resting comfortably reports improvement in pain. Tolerating clear liquid diet Hospitalist Physical - Physical exam Narrative exam: VITAL SIGNS: Reviewed. GENERAL: The patient appears normally developed, cachectic, mild discomfort no respiratory distress vital signs as documented. HEAD: No signs of head trauma. EYES: Pupils are equal. Extraocular motions intact. EARS: Hearing grossly intact. MOUTH: Oropharynx is normal. NECK: No adenopathy, no JVD. CHEST: Chest with clear breath sounds bilaterally. No wheezes, rales, or rhonchi. CARDIAC: Regular rate and rhythm. S1 and S2, without murmurs, gallops, or rubs. VASCULAR: No Edema. Peripheral pulses normal and equal in all extremities. ABDOMEN: Soft, right lower quadrant tenderness and non distended. No rebound or guarding, and no masses palpated. Bowel Sounds normal. MUSCULOSKELETAL: Good range of motion of all major joints. Extremities without clubbing, cyanosis or edema. NEUROLOGIC EXAM: Alert and oriented x 3 No focal sensory or strength deficits. Speech normal. Follows commands. PSYCHIATRIC: Mood normal. SKIN: detail exam as documented in skin assessment - Constitutional Vitals: Temp Pulse Resp BP Pulse Ox 97.0 F L 76 16 110/57 96 03/28/21 07:21 03/28/21 07:21 03/28/21 07:21 03/28/21 07:21 03/28/21 07:21 General appearance: Present: mild distress, well-nourished Results - Labs CBC & Chem 7: 03/28/21 08:06 03/27/21 08:00 Labs: Laboratory Last Values WBC 7.9 K/mm3 (4.5-11.0) 03/28/21 08:06 RBC 3.68 M/mm3 (3.65-5.03) 03/28/21 08:06 Hgb 10.3 gm/dl (10.1-14.3) 03/28/21 08:06 Hct 30.6 % (30.3-42.9) 03/28/21 08:06 MCV 83 fl (79-97) 03/28/21 08:06 MCH 28 pg (28-32) 03/28/21 08:06 MCHC 34 % (30-34) 03/28/21 08:06 RDW 16.2 % (13.2-15.2) H 03/28/21 08:06 Plt Count 203 K/mm3 (140-440) 03/28/21 08:06 Lymph % (Auto) 21.8 % (13.4-35.0) 03/28/21 08:06 [place] % (Auto) 7.4 % (0.0-7.3) H 03/28/21 08:06 Eos % (Auto) 11.2 % (0.0-4.3) H 03/28/21 08:06 Baso % (Auto) 0.7 % (0.0-1.8) 03/28/21 08:06 Lymph # (Auto) 1.7 K/mm3 (1.2-5.4) 03/28/21 08:06 [place] # (Auto) 0.6 K/mm3 (0.0-0.8) 03/28/21 08:06 Eos # (Auto) 0.9 K/mm3 (0.0-0.4) H 03/28/21 08:06 Baso # (Auto) 0.1 K/mm3 (0.0-0.1) 03/28/21 08:06 Seg Neutrophils % 58.9 % (40.0-70.0) 03/28/21 08:06 Seg Neutrophils # 4.7 K/mm3 (1.8-7.7) 03/28/21 08:06 Sodium 137 mmol/L (137-145) 03/27/21 08:00 Potassium 3.3 mmol/L (3.6-5.0) L 03/27/21 08:00 Chloride 106.1 mmol/L (98-107) 03/27/21 08:00 Carbon Dioxide 23 mmol/L (22-30) 03/27/21 08:00 Anion Gap 11 mmol/L 03/27/21 08:00 BUN 6 mg/dL (7-17) L 03/27/21 08:00 Creatinine 0.6 mg/dL (0.6-1.2) 03/27/21 08:00 Estimated GFR > 60 ml/min 03/27/21 08:00 BUN/Creatinine Ratio 10 % 03/27/21 08:00 Glucose 93 mg/dL (65-100) 03/27/21 08:00 Hemoglobin A1c 5.0 % (4-6) 03/27/21 08:00 Lactic Acid 1.40 mmol/L (0.7-2.0) 03/26/21 18:11 Calcium 7.9 mg/dL (8.4-10.2) L 03/27/21 08:00 Total Bilirubin 0.70 mg/dL (0.1-1.2) 03/27/21 08:00 Direct Bilirubin < 0.2 mg/dL (0-0.2) 03/26/21 12:29 Indirect Bilirubin 0.1 mg/dL 03/26/21 12:29 AST 11 units/L (5-40) 03/27/21 08:00 ALT 12 units/L (7-56) 03/27/21 08:00 Alkaline Phosphatase 66 units/L (35-129) 03/27/21 08:00 Total Protein 6.5 g/dL (6.3-8.2) 03/27/21 08:00 Albumin 3.4 g/dL (3.9-5) L 03/27/21 08:00 Albumin/Globulin Ratio 1.1 % 03/27/21 08:00 Lipase 25 units/L (13-60) 03/26/21 12:29 HCG, Qual Negative (Negative) 03/26/21 12:29 Urine Color Yellow (Yellow) 03/27/21 06:00 Urine Turbidity Clear (Clear) 03/27/21 06:00 Urine pH 6.0 (5.0-7.0) 03/27/21 06:00 Ur Specific [place] 1.019 (1.003-1.030) 03/27/21 06:00 Urine Protein <15 mg/dl mg/dL (Negative) 03/27/21 06:00 Urine Glucose (UA) Neg mg/dL (Negative) 03/27/21 06:00 Urine Ketones Tr mg/dL (Negative) 03/27/21 06:00 Urine Blood Neg (Negative) 03/27/21 06:00 Urine Nitrite Neg (Negative) 03/27/21 06:00 Urine Bilirubin Neg (Negative) 03/27/21 06:00 Urine Urobilinogen < 2.0 mg/dL (<2.0) 03/27/21 06:00 Ur Leukocyte Esterase Neg (Negative) 03/27/21 06:00 Urine WBC (Auto) 1.0 /HPF (0.0-6.0) 03/27/21 06:00 Urine RBC (Auto) 1.0 /HPF (0.0-6.0) 03/27/21 06:00 U Epithel Cells (Auto) 1.0 /HPF (0-13.0) 03/27/21 06:00 Microbiology: Microbiology 03/26/21 18:11 Peripheral/Venous Blood Culture - Preliminary NO GROWTH AFTER 24 HOURS 03/26/21 18:17 Peripheral/Venous Blood Culture - Preliminary NO GROWTH AFTER 24 HOURS 03/26/21 12:29 Peripheral/Venous Blood Culture - Preliminary NO GROWTH AFTER 24 HOURS 03/26/21 12:29 Peripheral/Venous Blood Culture - Preliminary NO GROWTH AFTER 24 HOURS Arciniega/IV: Voiding Method Toilet Active Medications - Current Medications Current Medications: Generic Name Dose Route Start Last Admin Trade Name Freq PRN Reason Stop Dose Admin Acetaminophen 650 mg 03/27/21 00:31 03/27/21 05:40 Acetaminophen 325 Mg Tab PO 650 mg Q4H PRN Administration Pain MILD(1-3)/Fever >100.5/NORIEGA Famotidine 20 mg 03/27/21 10:00 03/27/21 21:16 Famotidine 20 Mg/2 Ml Inj IV 20 mg BID WAGNER Administration Sodium Chloride 1,000 mls @ 100 mls/hr 03/27/21 00:45 03/27/21 02:30 Nacl 0.9% 1000 Ml IV 100 mls/hr DIRECT WAGNER Administration Piperacillin Sod/Tazobactam Sod 4.5 gm in 100 mls @ 200 mls/hr 03/27/21 04:00 03/28/21 04:09 Zosyn/Ns 4.5gm/100ml IV 200 mls/hr Q8H WAGNER Administration Protocol Morphine Sulfate 2 mg 03/27/21 00:31 03/28/21 04:10 Morphine 2 Mg/1 Ml Inj IV 2 mg Q4H PRN Administration Pain, Moderate (4-6) Ondansetron HCl 4 mg 03/27/21 00:31 Ondansetron 4 Mg/2 Ml Inj IV Q8H PRN Nausea And Vomiting Oxycodone/Acetaminophen 1 tab 03/27/21 00:31 03/27/21 17:30 Oxycodone /Acetaminophen 5-325mg Tab PO 1 tab Q6H PRN Administration Pain, Moderate (4-6) Sodium Chloride 10 ml 03/27/21 10:00 03/27/21 21:26 Sodium Chloride 0.9% 10 Ml Flush Syringe IV 10 ml BID WAGNER Administration Sodium Chloride 10 ml 03/27/21 00:31 Sodium Chloride 0.9% 10 Ml Flush Syringe IV PRN PRN LINE FLUSH
[2021-03-28] MEDS ORDERED: POTASSIUM CHLORIDE ER 20 MEQ TAB PO SCH (09:00)
--- NOTE | 2021-03-28 11:39 | Progress Note ---
Assessment and Plan - Patient Problems (1) Right lower quadrant pain Current Visit: Yes Status: Acute Plan to address problem: 1) Advance to FLD 2) Agree with probable discharge tomorrow on oral antibiotics. Subjective Date of service: 03/28/21 Patient Reports: Positive: no new complaints, feels better, tolerating liquids well Objective Vital Signs - 12hr 03/28/21 03/28/21 04:24 07:21 Temperature 98.6 F 97.0 F L Pulse Rate 85 76 Respiratory 18 16 Rate Blood Pressure 100/65 110/57 O2 Sat by Pulse 97 96 Oximetry - Abdomen PM_[id number]_[id number] 4, PM_46_[id number] 6, PM_46_[id number] 8 Hernia: none - Labs 03/28/21 08:06 03/27/21 08:00
[2021-03-28] MEDS: FAMOTIDINE 20 MG/2 ML INJ IV SCH ×2 (11:49→22:37)
[2021-03-28] MEDS: SODIUM CHLORIDE 0.9% 1000 ML 1,000 ML IV SCH (22:37)
[2021-03-29] MEDS: PIPERACIL/TAZOBACTA 4.5/NS 100 4.5 GM/100 ML VIAL IV SCH (04:09)
[2021-03-29] MEDS: oxyCODONE /ACETAMINOPHEN 5-325MG TAB PO PRN (04:09)
[2021-03-29 07:46] VITALS: BP 104/48
--- NOTE | 2021-03-29 09:56 | Discharge Summary ---
Providers - Providers Date of Admission: 03/26/21 18:30 Attending physician: JAZLYN TANG MD 03/26/21 18:16 Consult to Physician [CONS] Routine Comment: Consulting Provider: RAJAN HICKEY Physician Instructions: Reason For Exam: rlq inflammation 03/27/21 07:17 Consult to Physician [CONS] Routine Comment: Consulting Provider: JANET GROSS Physician Instructions: Reason For Exam: PID Primary care physician: CHARACTER IMPERSONATOR Hospitalization Condition: Fair Hospital course: 30-year-old Albanian-speaking female with no significant past medical history presents with right lower quadrant pain since yesterday. She has a 5-month-old in addition to 2 other children patient also has dysuria. No nausea vomiting or diarrhea. Pain is about 8 on a scale of 1-10. No exacerbating or relieving factors. No fever or chills. No exposure to coronavirus. Initial imaging CT scan showed concern for diffuse inflammatory change in the right pelvis and right lower abdomen with multiple differentials documented such as pelvic inflammatory disease, appendicitis, enteritis/colitis Diffuse right lower quadrant abdominal pain concerning for PID Systemic inflammatory response syndrome without organ dysfunction. No evidence of sepsis Hypotension Leukocytosis now resolved Hypokalemia Plan 03/28: Patient showing some clinical improvement. We will continue antibiotics therapy. Anticipate discharge in a.m. Continue supportive care bowel rest Surgery and DIETARY COOK input noted We will give a bolus of fluid and monitor blood pressure Pain control Continue empiric antibiotic at this time. Monitor electrolytes and LFTs DVT and GI prophylaxis Patient may benefit from a GI evaluation outpatient after inflammatory condition has resolved. Plan of care discussed with the patient in detail and nursing staff at bedside Disposition: -01 TO HOME OR SELFCARE Core Measure Documentation - Palliative Care Palliative Care/ Comfort Measures: Not Applicable Exam - Constitutional Vitals: Temp Pulse Resp BP Pulse Ox 98.2 F 56 L 18 104/48 97 03/29/21 06:59 03/29/21 06:59 03/29/21 06:59 03/29/21 06:59 03/29/21 06:59 Plan Activity: advance as tolerated, fall precautions Diet: advance as tolerated Follow up with: KOBI GALLO MD [Primary Care Provider] - 3-5 Days ELIZABETH GILL MD [Staff Physician] - 7 Days RAJAN HICKEY MD [Staff Physician] - 7 Days Prescriptions: Doxycycline Hyclate [Doxycycline Hyclate TAB] 100 mg PO Q12HR #10 tab traMADoL [Ultram] 50 mg PO Q6HR PRN #10 tablet PRN Reason: Pain
[2021-03-29] MEDS: FAMOTIDINE 20 MG/2 ML INJ IV SCH (10:44)
[2021-03-29] MEDS: SODIUM CHLORIDE 0.9% 1000 ML 1,000 ML IV SCH (10:44)
== END 2021-03-29 16:54 | disposition home or self-care (01) | DRG 758 ==
LOC: ED 11:59 → 3A 18:30 → 3B-SURG 19:58
PROVIDERS: ADMIT Internal Medicine; ATTEND Internal Medicine
DX: N73.9 Female pelvic inflammatory disease, unspecified (principal); R65.10 Systemic inflammatory response syndrome (SIRS) of non-infectious origin without acute organ dysfunction; I95.9 Hypotension, unspecified; D72.829 Elevated white blood cell count, unspecified; E87.6 Hypokalemia; K52.9 Noninfective gastroenteritis and colitis, unspecified; Z79.899 Other long term (current) drug therapy
CPT/HCPCS: 36415; 74177; 80048; 80053; 80076; 81001; 82140; 83036; 83690; 84703; 85025; 87040; 87210; 87591; 96361; 96365; 96375; G0378; J2270; J2405; J2543; J7030; Q9967